=== PATIENT | female | born 1960 | race African-American/Black ===

== ENCOUNTER 2017-10-23 11:22 | Observation (INO) | payer BC ==
[~2017-10-23] VITALS: Ht 165.1 cm; Wt 76.0 kg
[2017-10-23 11:41] VITALS: BP 132/81; PULSE 60; O2SAT 16
[2017-10-23] MEDS ORDERED: HYDR25TA5 PO (11:46)
[2017-10-23] MEDS ORDERED: LOVA20TA PO (11:46)
[2017-10-23] MEDS ORDERED: METF500T PO (11:46)
[2017-10-23] MEDS ORDERED: ASPIRIN 81 MG CHEW TAB PO ONE (12:00)
[2017-10-23] MEDS ORDERED: SODIUM CHLORIDE 0.9% FLUSH 10 ML FLUSH IVF PRN (12:00)
--- NOTE | 2017-10-23 12:17 | PD ---
HPI Chief Complaint: Chest Pain Time Seen by Provider: 11:44 Travel History International Travel<30 days: No Contact w/Intl Traveler<30days: No Traveled to known affect area: No History of Present Illness HPI This is a 56-year-old female with history of hypertension, hyperlipidemia, who presents today with complaints of chest pain intermittent over the last 8 hours. Patient states that she and her daughter were driving from [facility] when she started experiencing sharp left sided chest pain. She reports it as sharp under her left breast. There is no radiation. She reports it as severe however could not quantitate it number leonard. There is no shortness of breath. There is no nausea or diaphoresis. There are no other complaints time my examination. The patient denies any calf tenderness or calf swelling. PFSH Past Medical History High Cholesterol: Yes Diabetes: Yes Patient Takes Glucophage: Yes Hypertension: Yes Influenza Vaccination: No ?: Not Past Surgical History Hysterectomy: Yes (partial) Social History Alcohol Use: No Tobacco Use: No Substance Use: No Allergies-Medications (Allergen,Severity, Reaction): Coded Allergies: No Known Allergies (Unverified , 10/23/17) Reported Meds & Prescriptions Reported Meds & Active Scripts Active Reported Lovastatin 20 Mg Tab 20 Mg PO DAILY Hydrochlorothiazide 25 Mg Tab 25 Mg PO DAILY Metformin (Metformin HCl) 500 Mg Tab 500 Mg PO DAILY With a meal Review of Systems Except as stated in HPI: all other systems reviewed are Neg General / Constitutional: No: Fever, Chills HENT: No: Headaches, Lightheadedness Cardiovascular: Positive: Chest Pain or Discomfort (left sided under her left breast), No: Palpitations, Irregular Rhythm, Dyspnea on exertion Respiratory: No: Cough, Shortness of Breath Gastrointestinal: No: Nausea, Vomiting, Abdominal Pain Genitourinary: No: Frequency, Dysuria Musculoskeletal: No: Weakness, Edema, Pain Neurologic: No: Weakness, Dizziness, Headache Psychiatric: No: Anxiety, Substance Abuse Physical Exam Narrative GENERAL: Well-nourished, well-developed patient, in no acute rest her distress. SKIN: Focused skin assessment warm/dry. HEAD: Normocephalic/atraumatic. EYES: No scleral icterus. No injection or drainage. NECK: Supple, trachea midline. Supple. CARDIOVASCULAR: Regular rate and rhythm without murmurs, gallops, or rubs. RESPIRATORY: Breath sounds equal bilaterally. No accessory muscle use. GASTROINTESTINAL: Abdomen soft, non-tender, nondistended. MUSCULOSKELETAL: No cyanosis, or edema. NEUROLOGICAL: Awake and alert. Cranial nerves II through XII intact. Motor grossly within normal limits. Five out of 5 muscle strength in all muscle groups. Normal speech. Data Data Last Documented VS Vital Signs Date Time Temp Pulse Resp B/P (MAP) Pulse Ox O2 Delivery O2 Flow Rate FiO2 10/23/17 15:00 56 17 174/104 (127) 97 Room Air Orders Orders Basic Metabolic Panel (Bmp) (10/23/17 11:56) Ckmb (Isoenzyme) Profile (10/23/17 11:56) Complete Blood Count With Diff (10/23/17 11:56) D-Dimer (10/23/17 11:56) Magnesium (Mg) (10/23/17 11:56) Prothrombin Time / Inr (Pt) (10/23/17 11:56) Act Partial Throm Time (Ptt) (10/23/17 11:56) Troponin I (10/23/17 11:56) Chest, Single Ap (10/23/17 11:56) Ecg Monitoring (10/23/17 11:56) Bilateral Bp Monitoring (10/23/17 11:56) Iv Access Insert/Monitor (10/23/17 11:56) Oximetry (10/23/17 11:56) Oxygen Administration (10/23/17 11:56) Aspirin Chew (Aspirin Chew) (10/23/17 12:00) Sodium Chloride 0.9% Flush (Ns Flush) (10/23/17 12:00) CKMB (10/23/17 12:00) CKMB% (10/23/17 12:00) Electrocardiogram (10/23/17 15:36) Ckmb (Isoenzyme) Profile (10/23/17 15:36) Troponin I (10/23/17 15:36) Admit Order (Ed Use Only) (10/23/17 15:53) Labs Laboratory Tests Test 10/23/17 12:00 10/23/17 15:15 White Blood Count 4.9 TH/MM3 Red Blood Count 4.56 MIL/MM3 Hemoglobin 13.1 GM/DL Hematocrit 40.2 % Mean Corpuscular Volume 88.0 FL Mean Corpuscular Hemoglobin 28.8 PG Mean Corpuscular Hemoglobin Concent 32.7 % Red Cell Distribution Width 12.5 % Platelet Count 257 TH/MM3 Mean Platelet Volume 10.1 FL Neutrophils (%) (Auto) 51.5 % Lymphocytes (%) (Auto) 36.8 % Monocytes (%) (Auto) 9.4 % Eosinophils (%) (Auto) 1.4 % Basophils (%) (Auto) 0.9 % Neutrophils # (Auto) 2.5 TH/MM3 Lymphocytes # (Auto) 1.8 TH/MM3 Monocytes # (Auto) 0.5 TH/MM3 Eosinophils # (Auto) 0.1 TH/MM3 Basophils # (Auto) 0.0 TH/MM3 CBC Comment DIFF FINAL Differential Comment Prothrombin Time 11.0 SEC Prothromb Time International Ratio 1.0 RATIO Activated Partial Thromboplast Time 25.0 SEC D-Dimer Quantitative (PE/DVT) 0.26 MG/L FEU Blood Urea Nitrogen 12 MG/DL Creatinine 0.75 MG/DL Random Glucose 98 MG/DL Calcium Level 9.2 MG/DL Magnesium Level 2.2 MG/DL Sodium Level 139 MEQ/L Potassium Level 4.2 MEQ/L Chloride Level 107 MEQ/L Carbon Dioxide Level 27.8 MEQ/L Anion Gap 4 MEQ/L Estimat Glomerular Filtration Rate 97 ML/MIN Total Creatine Kinase 219 U/L Creatine Kinase MB 2.0 NG/ML Creatine Kinase MB % 0.9 % Troponin I LESS THAN 0.02 NG/ML MDM Medical Decision Making Medical Screen Exam Complete: Yes Emergency Medical Condition: Yes Differential Diagnosis ACS versus pulmonary embolus versus muscle skeletal pain Narrative Course 56-year-old female history hypertension, hyperlipidemia, presents here with complaints of chest pain intermittent times several hours. Patient drove here from [facility]. She states while en route from [place] abnormalities she started sprinting the pain. EKG and cardiac enzymes are negative for the first set. A second set has been ordered. Rectal condition was that she be admitted to the chest pain center for rule out protocol. She was not comfortable staying overnight and was thinking about signing out against advice. I discussed the case with Dr. Mayo who stated that he would likely be able to stress her this evening. They're amenable to this. She'll be admitted to the chest pain center for rule out protocol. Diagnosis Primary Impression: Chest pain Additional Impression: History of hypertension Admitting Information Admitting Physician Requests: Observation Champ Chen MD Oct 23, 2017 12:17
--- NOTE | 2017-10-23 12:33 | RADRPT ---
EXAM DATE/TIME: 10/23/2017 12:12 [facility] COMPARISON: No previous studies available for comparison. INDICATIONS : Chest pain. MEDICAL HISTORY : None. SURGICAL HISTORY : None. ENCOUNTER: Initial ACUITY: 1 day PAIN SCORE: 3/10 LOCATION: Bilateral chest FINDINGS: A single view of the chest demonstrates the lungs to be symmetrically aerated without evidence of mas s, infiltrate or effusion. The cardiomediastinal contours are unremarkable. Osseous structures are intact. CONCLUSION: 1. Negative portable chest. Ezio Evans MD on October 23, 2017 at 12:31 Board Certified Radiologist. This report was verified electronically.
[2017-10-23 12:40] LABS: AUTOMATED NEUTROPHIL # 2.5 TH/MM3 (1.8-7.7); BASOPHIL % 0.9 % (0.0-2.0); EOSINOPHIL # 0.1 TH/MM3 (0-0.4); EOSINOPHIL % 1.4 % (0.0-4.0); HEMATOCRIT 40.2 % (35.0-46.0); HEMO FLAGS DIFF FINAL; LYMPH % 36.8 % (9.0-44.0); LYMPHOCYTE # 1.8 TH/MM3 (1.0-4.8); MEAN CORPUSCULAR HEMOGLOBIN 28.8 PG (27.0-34.0); MEAN CORPUSCULAR HGB CONC 32.7 % (32.0-36.0); MONO % 9.4 % (0.0-8.0); NEUT % 51.5 % (16.0-70.0); PLATELET COUNT 257 TH/MM3 (150-450); RED BLOOD COUNT 4.56 MIL/MM3 (4.00-5.30); RED CELL DISTRIBUTION WIDTH 12.5 % (11.6-17.2); WHITE BLOOD COUNT 4.9 TH/MM3 (4.0-11.0)
[2017-10-23 13:02] LABS: ANION GAP 4 MEQ/L (5-15); BICARBONATE 27.8 MEQ/L (21.0-32.0); BLOOD UREA NITROGEN 12 MG/DL (7-18); CHLORIDE 107 MEQ/L (98-107); GLOMERULAR FILTRATION RATE 97 ML/MIN (>89); MAGNESIUM 2.2 MG/DL (1.5-2.5); SODIUM (NA) 139 MEQ/L (136-145)
[2017-10-23 13:03] LABS: POTASSIUM 4.2 MEQ/L (3.5-5.1)
[2017-10-23 13:05] LABS: CREATINE KINASE 219 U/L (26-192)
[2017-10-23 15:00] VITALS: BP 174/104; PULSE 56; RESP 17; O2SAT 97
[2017-10-23] MEDS ORDERED: ACETAMINOPHEN 500 MG CPLT PO PRN (16:00)
[2017-10-23] MEDS ORDERED: ONDANSETRON HCL 4 MG/2 ML VIAL IV PUSH PRN (16:00)
[2017-10-23] MEDS ORDERED: NITROGLYCERIN 0.4 MG SL 25 TABS/BTL SL PRN (16:00)
[2017-10-23 16:04] VITALS: O2SAT 100
[2017-10-23 16:23] LABS: CREATINE KINASE 183 U/L (26-192)
[2017-10-23 16:36] LABS: CKMB 1.7 NG/ML (0.5-3.6)
--- NOTE | 2017-10-23 16:51 | HHI.HP ---
HPI Primary Care Physician PCP in [place], [place] Chief Complaint Chest discomfort History of Present Illness 56-year-old female with history of diabetes, hyperlipidemia, and hypertension presents to emergency room for further evaluation of chest discomfort. Visiting from [facility] to attend her granddaughter's cheerleader competition. Drove all night leaving since 1130pm. Unsure time of onset, noting pain started sometime during her drive here. Location under left inframammary area. Characterized as a quick, sharp, "needle pain." No radiation of pain. Duration 2-3 minutes. Discomfort increased in frequency, occurring every 15-20 minutes. Pain gradually subsided. Denied associated symptoms of nausea, vomiting, dyspnea, or diaphoresis. States 1 episode of nausea this a.m., has since resolved. No known precipitating or relieving factors. A mother, also attending the competition who is an RN, encouraged her to seek further evaluation of her chest discomfort. Endorses similar pain in the past, although not as severe in intensity or duration. Follows with a primary care provider in [place], [place]. Endorses she has been chest pain- free since 9 AM. Review of Systems General: No fatigue,weakness, fever, chills, recent illness, or change in appetite. Has been in her general state of health. HEENT: No dysphasia CV: As stated above. Chest pain free since 9am. RESP: No SOB, cough, or recent URI. GI: No nausea, vomiting, or bowel changes. : No dysuria EXT: Reports left lower leg chronic edema compared to right. No paraesthesias. Chronic intermittent left lateral lower extremity intermittent "tingling and itchy feeling." MS: No discomfort, change in ROM, recent injury, or trauma. Endorses lifting heavy packages while loading up car. NEURO: No difficulty with balance, LOC, motor/sensory deficits SKIN: No rashes, no concerning lesions Past Family Social History Allergies: Coded Allergies: No Known Allergies (Unverified , 10/23/17) Past Medical History Hyperlipidemia, type 2 diabetes, hypertension, GERD Past Surgical History Partial hysterectomy, right knee surgery Reported Medications Reported Meds & Active Scripts Active Reported Lovastatin 20 Mg Tab 20 Mg PO DAILY Hydrochlorothiazide 25 Mg Tab 25 Mg PO DAILY Metformin (Metformin HCl) 500 Mg Tab 500 Mg PO DAILY With a meal Prilosec by mouth daily Active Ordered Medications Current Medications Medications (Trade) Dose Ordered Sig/Charlie Route Start Time Stop Time Status Last Admin (NS Flush) 2 ml UNSCH PRN IVF 10/23/17 12:00 (NS Flush) 2 ml BID IV FLUSH 10/23/17 21:00 (Tylenol) 500 mg Q4H PRN PO 10/23/17 16:00 (Zofran Inj) 4 mg Q6H PRN IV PUSH 10/23/17 16:00 (Nitrostat Sl) 0.4 mg Q5M PRN SL 10/23/17 16:00 (Aspirin) 325 mg DAILY PO 10/24/17 09:00 Family History Noncontributory for early onset cardiovascular disease. Social History Known hyperlipidemia, diabetes, and hypertension. No known coronary artery disease. Lifelong nonsmoker. Denies any alcohol. Endorses active lifestyle. Visiting from [place], [place]. Past cardiac testing Remote exercise stress test reported to be unremarkable. Physical Exam Vital Signs Vital Signs Date Time Temp Pulse Resp B/P (MAP) Pulse Ox O2 Delivery O2 Flow Rate FiO2 10/23/17 16:04 100 21 10/23/17 15:00 56 17 174/104 (127) 97 Room Air 10/23/17 11:41 60 132/81 (98) 16 Physical Exam GENERAL: Alert WN, WD, NAD, pleasant, female HEAD: NC, AT CV: RRR, without murmur, rub, gallop, no JVD, S1-S2 no S3-S4. Chest wall nontender with palpation. RESP: Clear lungs throughout bilateral, no crackles, wheeze, rhonchi, symmetrical chest rise, nonlabored, able to speak in full sentences ABD: Soft, NT, ND, no masses, positive bowel tones EXT: Pulses +24, no dependent edema MS: Normal tone 4 extremities, nontender, no obvious deformities, full range of motion NEURO: CN II through CN XII grossly intact, motor strength 5/5 PSYCH: A+O 3, pleasant affect, appropriate speech, mood, insight and judgment SKIN: Normal turgor, normal texture, no lesions, no rashes Laboratory Laboratory Tests Test 10/23/17 12:00 10/23/17 15:15 White Blood Count 4.9 Red Blood Count 4.56 Hemoglobin 13.1 Hematocrit 40.2 Mean Corpuscular Volume 88.0 Mean Corpuscular Hemoglobin 28.8 Mean Corpuscular Hemoglobin Concent 32.7 Red Cell Distribution Width 12.5 Platelet Count 257 Mean Platelet Volume 10.1 Neutrophils (%) (Auto) 51.5 Lymphocytes (%) (Auto) 36.8 Monocytes (%) (Auto) 9.4 Eosinophils (%) (Auto) 1.4 Basophils (%) (Auto) 0.9 Neutrophils # (Auto) 2.5 Lymphocytes # (Auto) 1.8 Monocytes # (Auto) 0.5 Eosinophils # (Auto) 0.1 Basophils # (Auto) 0.0 CBC Comment DIFF FINAL Differential Comment Prothrombin Time 11.0 Prothromb Time International Ratio 1.0 Activated Partial Thromboplast Time 25.0 D-Dimer Quantitative (PE/DVT) 0.26 Blood Urea Nitrogen 12 Creatinine 0.75 Random Glucose 98 Calcium Level 9.2 Magnesium Level 2.2 Sodium Level 139 Potassium Level 4.2 Chloride Level 107 Carbon Dioxide Level 27.8 Anion Gap 4 Estimat Glomerular Filtration Rate 97 Total Creatine Kinase 219 183 Creatine Kinase MB 2.0 Creatine Kinase MB % 0.9 Troponin I LESS THAN 0.02 LESS THAN 0.02 Result Diagram: 10/23/17 1200 10/23/17 1200 Imaging Last Impressions Chest X-Ray 10/23/17 1156 Signed Impressions: Service Date/Time: Monday, October 23, 2017 12:12 - CONCLUSION: 1. Negative portable chest. Ezio Evans MD Course EKG NSB, normal axis, nonspecific t wave changes Caprini VTE Risk Assessment Caprini VTE Risk Assessment: No/Low Risk (score <= 1) Caprini Risk Assessment Model Point Value = 1 Point Value = 2 Point Value = 3 Point Value = 5 Age 41-60 Minor surgery BMI > 25 kg/m2 Swollen legs Varicose veins or History of unexplained or recurrent spontaneous Oral contraceptives or hormone replacement Sepsis (< 1 month) Serious lung disease, including pneumonia (< 1 month) Abnormal pulmonary function Acute myocardial infarction Congestive heart failure (< 1 month) History of inflammatory bowel disease Medical patient at bed rest Age 61-74 Arthroscopic surgery Major open surgery (> 45 min) Laparoscopic surgery (> 45 min) Malignancy Confined to bed (> 72 hours) Immobilizing plaster cast Central venous access Age >= 75 History of VTE Family history of VTE Factor V Leiden Prothrombin [id number] Lupus anticoagulant Anticardiolipin antibodies Elevated serum homocysteine Heparin-induced thrombocytopenia Other congenital or acquired thrombophilia Stroke (< 1 month) Elective arthroplasty Hip, pelvis, or leg fracture Acute spinal cord injury (< 1 month) Prophylaxis Regimen Total Risk Factor Score Risk Level Prophylaxis Regimen 0-1 Low Early ambulation 2 Moderate Order ONE of the following: *Sequential Compression Device (SCD) *Heparin 5000 units SQ BID 3-4 Higher Order ONE of the following medications: *Heparin 5000 units SQ TID *Enoxaparin/Lovenox 40 mg SQ daily (WT < 150 kg, CrCl > 30 mL/min) *Enoxaparin/Lovenox 30 mg SQ daily (WT < 150 kg, CrCl > 10-29 mL/min) *Enoxaparin/Lovenox 30 mg SQ BID (WT < 150 kg, CrCl > 30 mL/min) AND/OR *Sequential Compression Device (SCD) 5 or more Highest Order ONE of the following medications: *Heparin 5000 units SQ TID (Preferred with Epidurals) *Enoxaparin/Lovenox 40 mg SQ daily (WT < 150 kg, CrCl > 30 mL/min) *Enoxaparin/Lovenox 30 mg SQ daily (WT < 150 kg, CrCl > 10-29 mL/min) *Enoxaparin/Lovenox 30 mg SQ BID (WT < 150 kg, CrCl > 30 mL/min) AND *Sequential Compression Device (SCD) Assessment and Plan Assessment and Plan #1 Atypical chest pain-admitted to chest pain center. Ruled out with 2 sets of EKGs and cardiac enzymes. Will be seen and evaluated by Dr. Pernell Mayo. Discussed the likelihood of completing exercise stress test this evening. If unremarkable, plan to discharge home with follow-up with PCP. Patient agreeable to care. #2 Hyperlipidemia-continue lovastatin, instructed despite hyperlipidemia diagnoses, statin therapy also recommended due to diabetes diagnoses. #3 Hypertension-continue hydrochlorothiazide, discussed importance of tight blood pressure control, low sodium diet. Discuss with PCP starting an ROSAS inhibitor due to diabetes diagnoses. #4 Type 2 Diabetes-continue metformin, stressed importance of decreasing sugar/ flour intake, increasing daily activity, and progression of diabetes can be delayed with her efforts. Willa Islas Oct 23, 2017 16:51
--- NOTE | 2017-10-23 17:01 | PD.CARD.PN ---
Subjective Subjective Remarks Patient reviewed and examined with BEHAVIORAL SCIENCE CHAIR. Pleasant lady who drove all night from [place] to see her granddaughter compete in [employer] leading competition. About 1 1/2 [address] drive she began to experience sharp stabbing CP below the left breast. Onset: Within last 24 hrs Character: Sharp stabbing Location: left chest lower ribs Severity: severe Radiation: none Duration: about a minute or two Associated Symptoms: none Precipitating or Relieving Factors: possibly the stress and anxiety of driving but nothing else could be identified. She has had one similar episode in the somewhat distant past that resolved within a day and with no recurrences. Her current episode has also resolved with no pain since 9 a.m. Objective Medications Current Medications Medications (Trade) Dose Ordered Sig/Charlie Route Start Time Stop Time Status Last Admin (NS Flush) 2 ml UNSCH PRN IVF 10/23/17 12:00 (NS Flush) 2 ml BID IV FLUSH 10/23/17 21:00 (Tylenol) 500 mg Q4H PRN PO 10/23/17 16:00 (Zofran Inj) 4 mg Q6H PRN IV PUSH 10/23/17 16:00 (Nitrostat Sl) 0.4 mg Q5M PRN SL 10/23/17 16:00 (Aspirin) 325 mg DAILY PO 10/24/17 09:00 Vital Signs / I&O Vital Signs Date Time Temp Pulse Resp B/P (MAP) Pulse Ox O2 Delivery O2 Flow Rate FiO2 10/23/17 16:04 100 21 10/23/17 15:00 56 17 174/104 (127) 97 Room Air 10/23/17 11:41 60 132/81 (98) 16 Physical Exam Chest is unremarkable aside from some midline hair. BS good with no RWR No tenderness identified CV RSR without GRM EKG neg dDimer neg CXR neg Laboratory Laboratory Tests Test 10/23/17 12:00 10/23/17 15:15 White Blood Count 4.9 TH/MM3 Red Blood Count 4.56 MIL/MM3 Hemoglobin 13.1 GM/DL Hematocrit 40.2 % Mean Corpuscular Volume 88.0 FL Mean Corpuscular Hemoglobin 28.8 PG Mean Corpuscular Hemoglobin Concent 32.7 % Red Cell Distribution Width 12.5 % Platelet Count 257 TH/MM3 Mean Platelet Volume 10.1 FL Neutrophils (%) (Auto) 51.5 % Lymphocytes (%) (Auto) 36.8 % Monocytes (%) (Auto) 9.4 % Eosinophils (%) (Auto) 1.4 % Basophils (%) (Auto) 0.9 % Neutrophils # (Auto) 2.5 TH/MM3 Lymphocytes # (Auto) 1.8 TH/MM3 Monocytes # (Auto) 0.5 TH/MM3 Eosinophils # (Auto) 0.1 TH/MM3 Basophils # (Auto) 0.0 TH/MM3 CBC Comment DIFF FINAL Differential Comment Prothrombin Time 11.0 SEC Prothromb Time International Ratio 1.0 RATIO Activated Partial Thromboplast Time 25.0 SEC D-Dimer Quantitative (PE/DVT) 0.26 MG/L FEU Blood Urea Nitrogen 12 MG/DL Creatinine 0.75 MG/DL Random Glucose 98 MG/DL Calcium Level 9.2 MG/DL Magnesium Level 2.2 MG/DL Sodium Level 139 MEQ/L Potassium Level 4.2 MEQ/L Chloride Level 107 MEQ/L Carbon Dioxide Level 27.8 MEQ/L Anion Gap 4 MEQ/L Estimat Glomerular Filtration Rate 97 ML/MIN Total Creatine Kinase 219 U/L 183 U/L Creatine Kinase MB 2.0 NG/ML 1.7 NG/ML Creatine Kinase MB % 0.9 % Troponin I LESS THAN 0.02 NG/ML LESS THAN 0.02 NG/ML Imaging Last 24 hours Impressions Chest X-Ray 10/23/17 1156 Signed Impressions: Service Date/Time: Monday, October 23, 2017 12:12 - CONCLUSION: 1. Negative portable chest. Ezio Evans MD Assessment and Plan Assessment and Plan She is determined to leave the ED tonight so that she can see her GD in competition in the a.m. so we will ETT after second set of enzymes and EKG if negative. Code Status Full Discussed Condition With Patient and family (4 members present) Pernell Mayo MD Oct 23, 2017 17:01
--- NOTE | 2017-10-23 17:52 | HHI.DCPOC ---
Discharge Care Plan Diagnosis: (1) Atypical chest pain (2) Hypertension (3) Type 2 diabetes mellitus Goals to Promote Your Health * To prevent worsening of your condition and complications * To maintain your health at the optimal level Directions to Meet Your Goals Take your medications as prescribed Follow your dietary instruction Follow activity as directed Keep your appointments as scheduled Take your immunizations and boosters as scheduled If your symptoms worsen call your PCP, if no PCP go to Urgent Care Center or Emergency Room Smoking is Dangerous to Your Health. Avoid second hand smoke Call the 24-hour hour crisis hotline for domestic abuse at Willa Islas Oct 23, 2017 17:52
[2017-10-23] MEDS ORDERED: SODIUM CHLORIDE 0.9% FLUSH 10 ML FLUSH IV FLUSH SCH (21:00)
[2017-10-24] MEDS ORDERED: ASPIRIN 325 MG TAB PO SCH (09:00)
--- NOTE | 2017-10-24 14:37 | EKG ---
Date Performed: 10/23/2017 Time Performed: 16:08:49 PTAGE: 56 years EKG: SINUS BRADYCARDIA NONSPECIFIC T-WAVE ABNORMALITY BORDERLINE ECG NO SIG CHANGE NO PREVIOUS TRACING DOCTOR: Pernell Mayo Interpretating Date/Time 10/24/2017 14:35:39
--- NOTE | 2017-10-24 14:40 | EKG ---
Date Performed: 10/23/2017 Time Performed: 11:46:21 PTAGE: 56 years EKG: SINUS BRADYCARDIA MODERATE T-WAVE ABNORMALITY, CONSIDER ANTERIOR ISCHEMIA ABNORMAL ECG NO S IG CHANGE NO PREVIOUS TRACING DOCTOR: Pernell Mayo Interpretating Date/Time 10/24/2017 14:38:03
--- NOTE | 2017-10-24 14:40 | TR ---
Date Performed: 10/23/2017 Time Performed: 17:21:11 DOCTOR: Pernell Mayo DRUG LIST: CLINICAL HISTORY: REASON FOR TEST: Chest pain / HTN / HYPERLIPIDEMIA REASON FOR ENDING: OBSERVATION: CONCLUSION: Peter protocol completed. Stopped sec to exceeding target heart rate and leg fatigue . Maximum XV=049 Target HR Achieved=86.0% Maximum YS=707/80 Total Exercise Time=9:12. No reprod chest pain/discomfort. Rare PVC. Upsloping J point depression. Great exercise tolerance. Hypertensive bp r esponse. Recovery quick and unremarkable. COMMENTS: Patient exercised using the Peter protocol. No electrocardiographic changes were seen to suggest ischemia. Hemodynamic response to exercise was normal. No significant arrhythmia was prese nt.
== END 2017-10-23 18:33 | disposition home or self-care (01) ==
LOC: NEPE 11:22 → NEDA 15:55
PROVIDERS: ADMIT Internal Medicine Interventional Cardiology; ATTEND Internal Medicine Interventional Cardiology
DX: R07.89 Other chest pain (principal); I10 Essential (primary) hypertension; R94.31 Abnormal electrocardiogram [ECG] [EKG]; E11.9 Type 2 diabetes mellitus without complications; E78.5 Hyperlipidemia, unspecified; K21.9 Gastro-esophageal reflux disease without esophagitis; Z90.710 Acquired absence of both cervix and uterus
CPT/HCPCS: 71010; 80048; 82550; 82552; 83735; 84484; 85025; 85379; 85610; 85730; 93005; 93017; 99285; G0378